=== PATIENT | female | born 1970 | race Caucasian/White ===

== ENCOUNTER → 2022-03-17 10:07 | Outpatient (CLI) | payer OTHER, SELFPAY ==
--- NOTE | 2022-03-17 | DI.RAD_ITS ---
Exam(s) XR CHEST 2V PA LATERAL EXAM: XR CHEST 2V PA LATERAL CLINICAL HISTORY: SOB, concern for CHF. TECHNIQUE: 2D digital imaging was performed. COMPARISON: No exams were available for comparison FINDINGS: 2 views: Mild cardiomegaly. The mediastinum is not widened. No confluent infiltrates nor pleural effusions. Platelike atelectasis is noted in the right lung. N o airspace pulmonary edema. IMPRESSION: Mild cardiomegaly. Right lung platelike atelectasis.No pulmonary edema. DATA REPOSITORY: RADIATION DOSE DELIVERED:
--- NOTE | 2022-03-17 10:41 | DI.VRAD_ITS ---
PROCEDURE INFORMATION: Exam: XR Chest Exam date and time: 03/17/2022 10:19 AM Age: 51 years old Clinical indication: Shortness of breath TECHNIQUE: Imaging protocol: Radiologic exam of the chest. Views: 2 views. COMPARISON: No relevant prior studies available. FINDINGS: Lungs: Diffuse interstitial prominence. Pleural spaces: Probable trace bilateral posterior pleural effusions. No pneumothorax. Heart/Mediastinum: Enlarged cardiac silhouette. Bones/joints: Degenerative changes in visualized spine. IMPRESSION: CHF. Probable trace bilateral posterior pleural effusions. Dictated and Authenticated by: Joe Carreno MD. Ordering:CARLOS Colón MD
== END ==
PROVIDERS: Visit Provider Physician Assistant Medical
DX: R06.02 Shortness of breath (principal); I51.7 Cardiomegaly; J98.11 Atelectasis; I51.9 Heart disease, unspecified
CPT/HCPCS: 71046